=== PATIENT | male | born 1980 | race Caucasian/White ===

== ENCOUNTER 2017-05-17 19:24 | Emergency (ER) | payer SELFPAY ==
[2017-05-17] MEDS ORDERED: Fluconazole 150 MG Tab PO ONE (20:10)
--- NOTE | 2017-05-17 20:13 | EDM.PDOC ---
ED HPI GENERAL MEDICAL PROBLEM - General Chief Complaint: Lower Extremity Injury/Pain Stated Complaint: PAIN RT LEG Time Seen by Provider: 05/17/17 20:05 Source of Information: Reports: Patient, RN - History of Present Illness INITIAL COMMENTS - FREE TEXT/NARRATIVE: several day history of itching rash behind right knee. 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 no fever Right Upper Leg Pain Score (Numeric/FACES): 3 - Related Data Allergies Allergy/AdvReac Type Severity Reaction Status Date / Time No Known Allergies Allergy Verified 05/17/17 19:33 Home Meds: Home Meds . [No Known Home Meds] 05/17/17 [History] Past Medical History Cardiovascular History: Denies: Heart Failure, Heart Murmur, Hypertension, ID Endocrine/Metabolic History: Denies: Bennie's Disease, Diabetes, Type I - Infectious Disease History Infectious Disease History: Reports: Chicken Pox - Past Surgical History HEENT Surgical History: Reports: Other (See Below) Other HEENT Surgeries/Procedures: nose/cheekbone surgery, after getting it broken Social & Family History - Tobacco Use Smoking Status *Q: Never Smoker - Caffeine Use Caffeine Use: Reports: Coffee, Soda - Recreational Drug Use Recreational Drug Use: No Review of Systems - Review of Systems Review Of Systems: See Below Constitutional: Denies: Chills, Fever Respiratory: Denies: Shortness of Breath GI/Abdominal: Denies: Vomiting ED EXAM, GENERAL - Physical Exam Exam: See Below Free Text/Narrative:: there is an area around the popliteal fossa and posterior to the knee and lower thigh which is erythematous with some scaling without increase in temperature or tenderness. No fluctuance. General Appearance: Alert, No Apparent Distress Course - Vital Signs Last Recorded V/S: Last Vital Signs Temp 96.3 F 05/17/17 19:27 Pulse 85 05/17/17 19:27 Resp 12 05/17/17 19:27 BP 130/105 H 05/17/17 19:27 Pulse Ox 95 05/17/17 19:27 - Orders/Labs/Meds Orders: Active Orders 24 hr Category Date Time Status Triamcinolone Acetonide [Kenalog 0.1% Crm] Med 05/17/17 20:15 Ordered 1 gm TOP NOW Medication Orders Triamcinolone Acetonide (Kenalog 0.1% Crm) 1 gm TOP NOW PRAKASH Meds: Medications Generic Name Dose Route Start Last Admin Trade Name Freq PRN Reason Stop Dose Admin Triamcinolone Acetonide 1 gm 05/17/17 20:15 Kenalog 0.1% Crm TOP NOW PRAKASH Discontinued Medications Generic Name Dose Route Start Last Admin Trade Name Freq PRN Reason Stop Dose Admin Fluconazole 150 mg 05/17/17 20:10 Diflucan PO 05/17/17 20:11 ONETIME ONE - Re-Assessments/Exams Free Text/Narrative Re-Assessment/Exam: 05/17/17 20:09 I advised that this is likely related to local sensitivity factors and may involve yeast organisms. I advised loose fitting clothing. Departure - Departure Time of Disposition: 20:09 Disposition: Home, Self-Care 01 Condition: Good Clinical Impression: Dermatitis - Discharge Information Referrals: PCP,None [Primary Care Provider] - Forms: ED Department Discharge Additional Instructions: recheck your blood pressure within a month. If it is greater than 140/90 , please see a physician. wear loose fitting clothing recheck if the rash does not improve within one week. Natalio Botello MD - My Orders Last 24 Hours: My Active Orders 05/17/17 20:15 Triamcinolone Acetonide [Kenalog 0.1% Crm] 1 gm TOP NOW - Assessment/Plan Last 24 Hours: My Active Orders 05/17/17 20:15 Triamcinolone Acetonide [Kenalog 0.1% Crm] 1 gm TOP NOW
[2017-05-17] MEDS ORDERED: Triamcinolone Acetonide 0.1% Crm 80 GM Tube TOP SCH (20:15)
[2017-05-17] MEDS ORDERED: Triamcinolone Acetonide 0.1% Crm 80 GM Tube ONE (20:40)
== END 2017-05-17 20:58 | disposition home or self-care (01) ==
LOC: MW.ED 19:24
DX: L30.9 Dermatitis, unspecified (principal)
CPT/HCPCS: 99283; A9270; 99281

== ENCOUNTER 2017-05-25 08:51 | Emergency (ER) | payer SELFPAY ==
[2017-05-25] MEDS ORDERED: Sodium Chloride 0.9% 2.5 ML Syringe FLUSH PRN (09:06)
[2017-05-25] MEDS ORDERED: Ondansetron 4 MG/2 ML SDV IVPUSH ONE (09:06)
[2017-05-25] MEDS ORDERED: Sodium Chloride 0.9% 1,000 ML IV ONE (09:06)
--- NOTE | 2017-05-25 09:08 | EDM.PDOC ---
ED HPI GENERAL MEDICAL PROBLEM - General Chief Complaint: General Stated Complaint: VOMITING Time Seen by Provider: 05/25/17 08:54 - History of Present Illness INITIAL COMMENTS - FREE TEXT/NARRATIVE: HISTORY AND PHYSICAL: History of present illness: The patient is a 37-year-old male with no history of GI problems presents with an episode of large vomitus that occurred 45 minutes ago. 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 He states that he prepares his own food. He says that at approximately 8:30 started feeling nauseated at one large vomitus. It was mostly bile and not black or bloody. He' s had no diarrhea and has no abdominal pain. Since the vomiting he feels better but he still has some nausea and he was concerned. He was not lightheaded or dizzy and did not pass out or black out and has no chest pain shortness of breath or flank pain. Patient has no abdominal surgical history Review of systems: As per history of present illness and below otherwise all systems reviewed and negative. Past medical history: As per history of present illness and as reviewed below otherwise noncontributory. Surgical history: As per history of present illness and as reviewed below otherwise noncontributory. Social history: No reported history of drug or alcohol abuse. Family history: As per history of present illness and as reviewed below otherwise noncontributory. Physical exam: Gen.: Well-developed well-nourished male who is nontoxic and mildly overweight. HEENT: Atraumatic, normocephalic, negative for conjunctival pallor or scleral icterus, mucous membranes moist, throat clear, neck supple, nontender, trachea midline. Lungs: Clear to auscultation, breath sounds equal bilaterally, chest nontender. Heart: S1S2, regular rate and rhythm no overt murmurs Abdomen: Soft, nondistended, nontender. No rebound no guarding and bowel sounds are normoactive. There is no discrete tenderness anywhere on palpation. Negative for masses or hepatosplenomegaly. Negative for costovertebral tenderness. Pelvis: Stable nontender. Genitourinary: Deferred. Rectal: Deferred. Extremities: Atraumatic, negative for cords or calf pain. Neurovascular unremarkable. Neuro: Awake, alert, oriented. Cranial nerves II through XII unremarkable. Cerebellum unremarkable. Motor and sensory unremarkable throughout. Exam nonfocal. Skin: Patient does have a diffuse maculopapular urticarial like rash seen on extremities which she states is not new and is a reaction to a cream was given. He is not concerned about that today. Diagnostics: CBC CMP amylase lipase Therapeutics: IV IV fluids Zofran Impression: Vomiting improved Definitive disposition and diagnosis as appropriate pending reevaluation and review of above. - Related Data Allergies Allergy/AdvReac Type Severity Reaction Status Date / Time No Known Allergies Allergy Verified 05/17/17 19:33 Home Meds: Home Meds . [No Known Home Meds] 05/17/17 [History] Past Medical History - Past Health History Medical/Surgical History: Denies Medical/Surgical History - Infectious Disease History Infectious Disease History: Reports: Chicken Pox - Past Surgical History HEENT Surgical History: Reports: Other (See Below) Other HEENT Surgeries/Procedures: nose/cheekbone surgery, after getting it broken Social & Family History - Tobacco Use Smoking Status *Q: Never Smoker Second Hand Smoke Exposure: No - Caffeine Use Caffeine Use: Reports: Soda - Recreational Drug Use Recreational Drug Use: No ED ROS GENERAL - Review of Systems Review Of Systems: ROS reveals no pertinent complaints other than HPI. ED EXAM, GENERAL - Physical Exam Exam: See Below (See dictation) Course - Vital Signs Last Recorded V/S: Last Vital Signs Temp 35.8 C 05/25/17 09:01 Pulse 72 05/25/17 09:01 Resp 16 05/25/17 09:01 BP 149/93 H 05/25/17 09:01 Pulse Ox 96 05/25/17 09:01 - Orders/Labs/Meds Orders: Active Orders 24 hr Category Date Time Status Sodium Chloride 0.9% [Saline Flush] Med 05/25/17 09:06 Active 10 ml FLUSH ASDIRECTED PRN Sodium Chloride 0.9% [Saline Flush] Med 05/25/17 09:06 Active 2.5 ml FLUSH ASDIRECTED PRN Saline Lock Insert [OM.PC] Stat Oth 05/25/17 09:06 Ordered Medication Orders Sodium Chloride (Saline Flush) 10 ml FLUSH ASDIRECTED PRN PRN Reason: Keep Vein Open Last Admin: 05/25/17 09:26 Dose: 10 ml Admin: 05/25/17 09:23 Dose: 10 ml Sodium Chloride (Saline Flush) 2.5 ml FLUSH ASDIRECTED PRN PRN Reason: Keep Vein Open Last Admin: 05/25/17 09:30 Dose: 2.5 ml Labs: Laboratory Tests 05/25/17 05/25/17 Range/Units 09:10 09:10 WBC 6.44 (4.0-11.0) K/uL RBC 5.47 (4.50-5.90) M/uL Hgb 16.6 (13.0-17.0) g/dL Hct 46.6 (38.0-50.0) % MCV 85.2 (80.0-98.0) fL MCH 30.3 (27.0-32.0) pg MCHC 35.6 (31.0-37.0) g/dL RDW Std Deviation 38.7 (28.0-62.0) fl RDW Coeff of Becky 13 (11.0-15.0) % Plt Count 287 (150-400) K/uL MPV 9.30 (7.40-12.00) fL Neut % (Auto) 56.4 (48.0-80.0) % Lymph % (Auto) 29.0 (16.0-40.0) % Mcdowell % (Auto) 7.3 (0.0-15.0) % Eos % (Auto) 6.4 (0.0-7.0) % Baso % (Auto) 0.9 (0.0-1.5) % Neut # (Auto) 3.6 (1.4-5.7) K/uL Lymph # (Auto) 1.9 (0.6-2.4) K/uL Mcdowell # (Auto) 0.5 (0.0-0.8) K/uL Eos # (Auto) 0.4 (0.0-0.7) K/uL Baso # (Auto) 0.1 (0.0-0.1) K/uL Nucleated RBC % 0.0 /100WBC Nucleated RBCs # 0 K/uL Sodium 141 (136-146) mmol/L Potassium 3.8 (3.5-5.1) mmol/L Chloride 103 (98-110) mmol/L Carbon Dioxide 26 (21-31) mmol/L BUN 12 (6.0-23.0) mg/dL Creatinine 1.0 (0.6-1.5) mg/dL Est Cr Clr Drug Dosing 109.93 mL/min Estimated GFR (MDRD) > 60.0 ml/min Glucose 144 H (60-110) mg/dL Calcium 9.5 (8.8-10.8) mg/dL Total Bilirubin 0.5 (0.1-1.5) mg/dL AST 62 H (5-40) IU/L ALT 87 H (8-54) IU/L Alkaline Phosphatase 57 (40-150) Total Protein 7.9 (6.0-8.0) g/dL Albumin 4.7 (3.5-5.0) g/dL Globulin 3.2 (2.0-3.5) g/dL Albumin/Globulin Ratio 1.5 (1.3-2.8) Amylase 59 (10-90) U/L Lipase 30 (7-80) U/L Meds: Medications Generic Name Dose Route Start Last Admin Trade Name Chaparro PRN Reason Stop Dose Admin Sodium Chloride 10 ml 05/25/17 09:06 05/25/17 09:26 Saline Flush FLUSH 10 ml ASDIRECTED PRN Administration Keep Vein Open Sodium Chloride 2.5 ml 05/25/17 09:06 05/25/17 09:30 Saline Flush FLUSH 2.5 ml ASDIRECTED PRN Administration Keep Vein Open Discontinued Medications Generic Name Dose Route Start Last Admin Trade Name Chaparro PRN Reason Stop Dose Admin Sodium Chloride 1,000 mls @ 999 mls/hr 05/25/17 09:06 05/25/17 09:24 Normal Saline IV 05/25/17 10:06 999 mls/hr STAT ONE Administration Ondansetron HCl 4 mg 05/25/17 09:06 05/25/17 09:23 Zofran IVPUSH 05/25/17 09:07 4 mg ONETIME ONE Administration Departure - Departure Time of Disposition: 10:16 Disposition: Home, Self-Care 01 Condition: Good Clinical Impression: Vomiting Qualifiers: Vomiting type: unspecified Vomiting Intractability: non-intractable Nausea presence: with nausea Qualified Code(s): R11.2 - Nausea with vomiting, unspecified - Discharge Information Referrals: PCP,None [Primary Care Provider] - Forms: ED Department Discharge Additional Instructions: The following information is given to patients seen in the emergency department who are being discharged to home. This information is to outline your options for follow-up care. We provide all patients seen in our emergency department with a follow-up referral. The need for follow-up, as well as the timing and circumstances, are variable depending upon the specifics of your emergency department visit. If you don't have a primary care physician on staff, we will provide you with a referral. We always advise you to contact your personal physician following an emergency department visit to inform them of the circumstance of the visit and for follow-up with them and/or the need for any referrals to a consulting specialist. The emergency department will also refer you to a specialist when appropriate. This referral assures that you have the opportunity for followup care with a specialist. All of these measure are taken in an effort to provide you with optimal care, which includes your followup. Under all circumstances we always encourage you to contact your private physician who remains a resource for coordinating your care. When calling for followup care, please make the office aware that this follow-up is from your recent emergency room visit. If for any reason you are refused follow-up, please contact the [facility] emergency department at and ask to speak to the emergency department charge nurse. [facility] Primary care- [place] [address] Please push hydration and avoid caffeinated products and eat a bland diet the next 2 days. Use Zofran you have been prescribed as needed. Please call and follow-up in the clinic as we discussed and return to ER as needed and as discussed. - My Orders Last 24 Hours: My Active Orders 05/25/17 09:06 Sodium Chloride 0.9% [Saline Flush] 10 ml FLUSH ASDIRECTED PRN Sodium Chloride 0.9% [Saline Flush] 2.5 ml FLUSH ASDIRECTED PRN Saline Lock Insert [OM.PC] Stat - Assessment/Plan Last 24 Hours: My Active Orders 05/25/17 09:06 Sodium Chloride 0.9% [Saline Flush] 10 ml FLUSH ASDIRECTED PRN Sodium Chloride 0.9% [Saline Flush] 2.5 ml FLUSH ASDIRECTED PRN Saline Lock Insert [OM.PC] Stat
[2017-05-25] MEDS: Sodium Chloride 0.9% 10 ML Syringe FLUSH PRN ×2 (09:23→09:26)
[2017-05-25 09:51] LABS: CHLORIDE,CL 103 mmol/L (98-110); SODIUM,NA 141 mmol/L (136-146)
== END 2017-05-25 10:25 | disposition home or self-care (01) ==
LOC: MW.ED 08:51
DX: R11.2 Nausea with vomiting, unspecified (principal)
CPT/HCPCS: 80053; 82150; 83690; 85025; 96361; 96374; 99283; J2405; J7040